=== PATIENT | female | born 1935 | race Caucasian/White ===

== ENCOUNTER 2021-02-13 12:43 | Outpatient (CLI) | payer MEDICARE | END 2021-02-13 12:44 | disposition home or self-care (01) | LOC: CSHULT 12:43 | PROVIDERS: ATTEND Family Medicine | DX: M79.89 Other specified soft tissue disorders (principal); I34.0 Nonrheumatic mitral (valve) insufficiency; I07.1 Rheumatic tricuspid insufficiency; I50.1 Left ventricular failure, unspecified | CPT/HCPCS: 93306 ==

== ENCOUNTER 2022-03-23 15:58 | Outpatient (CLI) | payer MEDICARE ==
[2022-03-24 00:13] LABS: SARS-CoV-2 PCR by NAA Not Detected (NotDetected)
== END 2022-03-23 15:59 | disposition home or self-care (01) ==
LOC: CSHLAB 15:58
PROVIDERS: ATTEND Internal Medicine Gastroenterology
DX: Z20.822 Contact with and (suspected) exposure to COVID-19 (principal); K21.9 Gastro-esophageal reflux disease without esophagitis; K62.5 Hemorrhage of anus and rectum
CPT/HCPCS: U0003; U0005

== ENCOUNTER 2022-03-26 08:20 | Day surgery (SDC) | payer MEDICARE ==
[2022-03-23 13:27] VITALS: BMI 28.1
[2022-03-26] MEDS ORDERED: Lidocaine 1% MPF 2 ML VIAL ONE (08:47)
[2022-03-26] MEDS ORDERED: Lidocaine 1% PF 5 ML VIAL ONE (09:51)
[2022-03-26] MEDS ORDERED: PROPOFOL 40 ML ONE (09:51)
[2022-03-26] MEDS ORDERED: PROPOFOL 20 ML ONE ×2 (10:23→10:42)
== END 2022-03-26 11:45 | disposition home or self-care (01) ==
LOC: CSHSDC 08:20
PROVIDERS: ATTEND Internal Medicine Gastroenterology
PROC: 0DBN8ZZ Excision of Sigmoid Colon, Via Natural or Artificial Opening Endoscopic (ICD-10-PCS; principal; 2022-03-26)
PROC: 0DB58ZZ Excision of Esophagus, Via Natural or Artificial Opening Endoscopic (ICD-10-PCS; 2022-03-26)
DX: K21.00 Gastro-esophageal reflux disease with esophagitis, without bleeding (principal); K62.5 Hemorrhage of anus and rectum; D12.5 Benign neoplasm of sigmoid colon; K64.9 Unspecified hemorrhoids; K57.30 Diverticulosis of large intestine without perforation or abscess without bleeding; K44.9 Diaphragmatic hernia without obstruction or gangrene; K29.70 Gastritis, unspecified, without bleeding
CPT/HCPCS: 36416; 88305; J2704

== ENCOUNTER 2022-05-12 17:51 | Emergency (ER) | payer MEDICARE ==
[2022-05-12] MEDS ORDERED: Ketorolac Tromethamine 30 MG/ML VIAL ONE (19:31)
== END 2022-05-12 20:35 | disposition home or self-care (01) ==
LOC: CSHERS 17:51
DX: S80.12XA Contusion of left lower leg, initial encounter (principal); E11.9 Type 2 diabetes mellitus without complications; E03.9 Hypothyroidism, unspecified; K21.9 Gastro-esophageal reflux disease without esophagitis; E78.5 Hyperlipidemia, unspecified; I10 Essential (primary) hypertension; X58.XXXA Exposure to other specified factors, initial encounter
CPT/HCPCS: 96372; J1885

== ENCOUNTER 2023-02-09 10:42 | Outpatient (CLI) | payer MEDICARE | END 2023-02-09 10:43 | disposition home or self-care (01) | LOC: CSHCP 10:42 | PROVIDERS: ATTEND Internal Medicine | DX: R91.1 Solitary pulmonary nodule (principal) | CPT/HCPCS: 71250; 94060; 94726; 94729; 94760 ==

== ENCOUNTER 2023-05-26 12:57 | Outpatient (CLI) | payer MEDICARE, OTHER ==
[~2023-05-26 12:57] MED LIST: Iopamidol 300 61% 100 ML VIAL FS ONE
== END 2023-05-26 12:58 | disposition home or self-care (01) ==
LOC: CSHCT 12:57
PROVIDERS: ATTEND Internal Medicine
DX: C34.82 Malignant neoplasm of overlapping sites of left bronchus and lung (principal); R91.8 Other nonspecific abnormal finding of lung field
CPT/HCPCS: 71260; 74177; 82565; Q9967

== ENCOUNTER 2024-06-13 09:39 | Outpatient (CLI) | payer MEDICARE ==
[2024-06-13] MEDS ORDERED: Iopamidol 300 61% 100 ML VIAL FS ONE (14:40)
== END 2024-06-13 09:40 | disposition home or self-care (01) ==
LOC: CSHCT 09:39
PROVIDERS: ATTEND Internal Medicine
DX: C34.82 Malignant neoplasm of overlapping sites of left bronchus and lung (principal)
CPT/HCPCS: 71260; 82565; Q9967

== ENCOUNTER 2024-10-10 10:27 | Outpatient (CLI) | payer MEDICARE ==
[2024-10-10] MEDS ORDERED: Iopamidol 200 41% 50 ML VIAL FS ONE (15:00)
== END 2024-10-10 10:28 | disposition home or self-care (01) ==
LOC: CSHCT 10:27
PROVIDERS: ATTEND Internal Medicine
DX: E11.9 Type 2 diabetes mellitus without complications (principal); C34.82 Malignant neoplasm of overlapping sites of left bronchus and lung; Z98.890 Other specified postprocedural states
CPT/HCPCS: 71260

== ENCOUNTER 2025-10-24 13:17 | Outpatient (CLI) | payer MEDICARE | END 2025-10-24 13:18 | disposition home or self-care (01) | LOC: CSHCT 13:17 | PROVIDERS: ATTEND Internal Medicine | DX: C34.82 Malignant neoplasm of overlapping sites of left bronchus and lung (principal) | CPT/HCPCS: 71250 ==